=== PATIENT | male | born 1935 | race Caucasian/White ===

== ENCOUNTER 2017-01-06 08:36 | Inpatient (IN) | payer MEDICARE, BC ==
[~2017-01-06] VITALS: Ht 176.5 cm; Wt 90.6 kg
[~2017-01-06 08:36] MED LIST: BUPIVACAINE 0.25% ONE; BUPIVACAINE/PF 0.5% ONE; THROMBIN 5,000 UNIT VIAL TP ONE
[2017-01-06] MEDS ORDERED: LACTATED RINGERS 1,000 ML IV SCH (09:20)
[2017-01-06] MEDS ORDERED: LOSA50TA6 PO (09:22)
[2017-01-06] MEDS ORDERED: MV,1TABL3 PO (09:22)
[2017-01-06] MEDS ORDERED: MELA5TAB19 PO (09:22)
[2017-01-06] MEDS ORDERED: VITAMIN K PO (09:22)
[2017-01-06] MEDS ORDERED: ATOR10TA9 PO (09:22)
[2017-01-06] MEDS ORDERED: NAPR220T77 PO (09:23)
[2017-01-06] MEDS ORDERED: PLEASE ENTER HEIGHT AND WEIGHT MC SCH (09:30)
[2017-01-06 09:47] VITALS: BP 174/106
[2017-01-06] MEDS ORDERED: MIDAZOLAM 1 MG/ML, 2ML ONE (11:10)
[2017-01-06] MEDS ORDERED: FENTANYL PF 100 MCG/2ML ONE ×4 (11:10→13:36)
[2017-01-06] MEDS ORDERED: NEOSTIGMINE 1 MG/ML, 10ML ONE (11:35)
[2017-01-06] MEDS ORDERED: GLYCOPYRROLATE 0.2MG/1ML, 5ML ONE (11:35)
[2017-01-06] MEDS ORDERED: ROCURONIUM 10 MG/ML ONE ×4 (11:35)
[2017-01-06] MEDS ORDERED: SUCCINYLCHOLINE 20 MG/ML, 10ML ONE (11:35)
[2017-01-06] MEDS ORDERED: PROPOFOL 10 MG/ML, 20ML ONE (11:35)
[2017-01-06] MEDS ORDERED: ONDANSETRON 2MG/ML, 2ML ONE (11:35)
[2017-01-06] MEDS ORDERED: CEFAZOLIN 1,000 MG ONE (11:35)
[2017-01-06] MEDS ORDERED: DEXAMETHASONE 4 MG/ML, 5ML ONE (11:35)
[2017-01-06] MEDS ORDERED: BACITRACIN 50,000 UNIT IRRIG ONE (11:57)
[2017-01-06] MEDS ORDERED: EPINEPHRINE 1 MG/ML, 1ML INFIL ONE (12:28)
[2017-01-06] MEDS ORDERED: BUPIVACAINE/PF 0.25% EPIDPUSH ONE (12:43)
[2017-01-06] MEDS ORDERED: FENTANYL PF 100 MCG/2ML EPIDPUSH ONE (12:46)
[2017-01-06] MEDS ORDERED: PROMETHAZINE 25 MG/ML, 1ML IV PRN (13:30)
[2017-01-06] MEDS ORDERED: MEPERIDINE/PF 25MG/0.5ML IVPush PRN (13:30)
[2017-01-06] MEDS ORDERED: ALBUTEROL SULFATE 2.5 MG/3 ML NPPB PRN (13:30)
[2017-01-06] MEDS ORDERED: HYDROmorphone 1 MG/ML, 1ML IV PRN (13:30)
[2017-01-06] MEDS ORDERED: EPHEDRINE 50 MG/ML, 1ML IVPush PRN (13:30)
[2017-01-06] MEDS ORDERED: ONDANSETRON 2MG/ML, 2ML IVPush PRN ×2 (13:30→14:00)
[2017-01-06] MEDS ORDERED: METOPROLOL 1 MG/ML, 5ML IV PRN (13:30)
[2017-01-06] MEDS ORDERED: hydrALAzine 20 MG/ML, 1ML IV PRN (13:30)
[2017-01-06] MEDS ORDERED: LABETALOL 5MG/ML, 20ML IV PRN (13:30)
[2017-01-06] MEDS ORDERED: OXYcodone 5 MG/5 ML ORAL.SOL UDC PO PRN (13:30)
[2017-01-06] MEDS ORDERED: MIDAZOLAM 1 MG/ML, 2ML IV PRN (13:30)
[2017-01-06] MEDS ORDERED: OXYcodone 5 MG/5 ML ORAL.SOL UDC ONE (13:58)
[2017-01-06] MEDS ORDERED: SENNA/DOCUSATE TABLET PO PRN (14:00)
[2017-01-06] MEDS ORDERED: OXYcodone IR 5MG TABLET PO PRN (14:00)
[2017-01-06] MEDS ORDERED: DIPHENHYDRAMINE 50 MG/ML, 1ML IVPush PRN (14:00)
[2017-01-06] MEDS ORDERED: BISACODYL 10 MG SUPP PR PRN (14:00)
[2017-01-06] MEDS ORDERED: morphine SULFATE 10 MG/ML, 1ML IVPush PRN (14:00)
[2017-01-06] MEDS ORDERED: CYCLOBENZAPRINE 10 MG TABLET PO PRN (14:00)
[2017-01-06] MEDS ORDERED: PROMETHAZINE 25 MG/ML, 1ML IM PRN (14:00)
[2017-01-06] MEDS ORDERED: PHARMACY MAY ADJ FOR RENAL FX MC PRN (14:00)
[2017-01-06] MEDS: FENTANYL PF 100 MCG/2ML IV PRN ×2 (14:10→14:17)
[2017-01-06 20:20] VITALS: BP 143/82
[2017-01-06] MEDS: SODIUM CHLORIDE FLUSH 10ML SYR IVF SCH (21:00)
[2017-01-06] MEDS: D5%-0.9% NACL+KCL 20MEQ 1,000 ML IV SCH (21:25)
[2017-01-06] MEDS: CEFAZOLIN PMX 1GM/50ML 50 ML IVPB SCH (21:25)
[2017-01-06] MEDS: ATORVASTATIN 10 MG TABLET PO SCH (21:25)
[2017-01-06] MEDS: MELATONIN 5 MG TABLET PO SCH (21:26)
[2017-01-07 02:04] VITALS: BP 130/76
[2017-01-07] MEDS ORDERED: CEFAZOLIN PMX 1GM/50ML 50 ML ONE (04:30)
[2017-01-07] MEDS: CEFAZOLIN PMX 1GM/50ML 50 ML IVPB SCH (04:34)
[2017-01-07 07:37] VITALS: BP 132/70
[2017-01-07] MEDS: D5%-0.9% NACL+KCL 20MEQ 1,000 ML IV SCH ×2 (08:04→21:34)
[2017-01-07] MEDS: LOSARTAN 50MG TABLET PO SCH (08:04)
[2017-01-07] MEDS: SODIUM CHLORIDE FLUSH 10ML SYR IVF SCH ×2 (08:04→21:34)
[2017-01-07 13:08] VITALS: BP 105/65
[2017-01-07 19:16] VITALS: BP 126/71
[2017-01-07] MEDS: ATORVASTATIN 10 MG TABLET PO SCH (21:34)
[2017-01-07] MEDS: MELATONIN 5 MG TABLET PO SCH (21:34)
[2017-01-08 02:50] VITALS: BP 142/88
[2017-01-08 07:35] VITALS: BP 124/75
[2017-01-08] MEDS: LOSARTAN 50MG TABLET PO SCH (08:00)
[2017-01-08] MEDS: SODIUM CHLORIDE FLUSH 10ML SYR IVF SCH (08:00)
[2017-01-08] MEDS ORDERED: TRAM50TA2 PO (10:21)
[2017-01-08] MEDS ORDERED: CYCL-259 PO (10:21)
[2017-01-08] MEDS ORDERED: CEPH-368 PO (10:22)
[2017-01-08 11:41] VITALS: BP 120/75
== END 2017-01-08 11:55 | disposition home or self-care (01) | DRG 517 ==
LOC: OUT 08:36 → ORIP 13:40 → 4NOR 15:49
PROVIDERS: ADMIT Neurological Surgery; ATTEND Neurological Surgery
PROC: 01NR0ZZ Release Sacral Nerve, Open Approach (ICD-10-PCS; 2017-01-06)
PROC: 01NB0ZZ Release Lumbar Nerve, Open Approach (ICD-10-PCS; principal; 2017-01-06 13:00)
DX: M48.06 Spinal stenosis, lumbar region (principal); I10 Essential (primary) hypertension; Z85.46 Personal history of malignant neoplasm of prostate; Z92.3 Personal history of irradiation; Z88.8 Allergy status to other drugs, medicaments and biological substances; Z87.891 Personal history of nicotine dependence; Z82.49 Family history of ischemic heart disease and other diseases of the circulatory system; Z79.899 Other long term (current) drug therapy
CPT/HCPCS: 72100; J0171; J0690; J1100; J2250; J2405; J2704; J2710; J3010; J3490; J0330; J3480; J7120